=== PATIENT | female | born 1985 | race Caucasian/White ===

== ENCOUNTER 2019-02-13 03:30 | Inpatient (IN) | payer OTHER ==
--- NOTE | 2019-02-13 03:51 | ED.PDOC ---
History of Present Illness - General Chief Complaint: GI Problem Stated Complaint: nausea vomiting hx gallbladder issues Time Seen by Provider: 02/13/19 03:51 Information Source: patient Exam Limitations: no limitations - History of Present Illness Initial Comments: Jael Romero 33 y/o female stated that she had sharp epigastric pain non radiating since yesterday afternoon and took MOM not getting any better ;had also 3 episodes of nausea/vomiting today and just ate lunch at 1230p.Had same symptoms a year ago and went away after taking MOM. Abdominal Pain Onset Location: epigastric Pain Radiation: no radiation Quality: moderate, sharpness Timing/Duration: 7-24 hours Improving Factors: nothing Worsening Factors: nothing Associated Symptoms: nausea/vomiting Review of Systems - Review of Systems Constitutional: States: no symptoms reported EENTM: States: no symptoms reported Respiratory: States: no symptoms reported Cardiology: States: no symptoms reported Gastrointestinal/Abdominal: States: see HPI Genitourinary: States: no symptoms reported Musculoskeletal: States: no symptoms reported Skin: States: no symptoms reported Neurological: States: no symptoms reported Endocrine: States: no symptoms reported All other Systems: Reviewed and Negative, No Change from Baseline Past Medical History (General) - Patient Medical History Hx Seizures: No Hx Stroke: No Hx Dementia: No Hx Asthma: No Hx of COPD: No Hx Cardiac Disorders: No Hx Congestive Heart Failure: No Hx Pacemaker: No Hx Hypertension: No Hx Thyroid Disease: No Hx Diabetes: No Hx Gastroesophageal Reflux: No Hx Renal Disease: No Hx of HIV: No Hx MRSA: No Surgical History: no surgical history - Vaccination History Hx Tetanus, Diphtheria Vaccination: Yes Hx Influenza Vaccination: No Hx Pneumococcal Vaccination: No - Social History Hx Tobacco Use: No Hx Alcohol Use: Yes Hx Substance Use: No Hx Substance Use Treatment: No Hx Depression: No Hx Physical Abuse: No Hx Emotional Abuse: No - Female History Patient is a Female of Child Bearing Age (10 -59 yrs old): Yes Hx Last Menstrual Period: 01/27/19 Patient : No Family Medical History - Family History Mother Family History: Unknown Hx Family;Other: Gallstone -mom Physical Exam - Physical Exam General Appearance: Alert, Comfortable, No apparent distress Eyes, Ears, Nose, Throat Exam: normal ENT inspection Neck: non-tender, full range of motion, supple, normal inspection Respiratory: chest non-tender, lungs clear, normal breath sounds, no respiratory distress Cardiovascular/Chest: normal peripheral pulses, no murmur Peripheral Pulses: No deficit Gastrointestinal/Abdominal: normal bowel sounds, soft, no organomegaly, tenderness - epigastrium,no peritoneal signs Back Exam: no CVA tenderness, no vertebral tenderness Extremity: no pedal edema, no calf tenderness Neurologic: alert, oriented x 3 Skin Exam: normal color, warm/dry Progress - Progress Progress: 02/13/19 04:36 Vital Signs - 8 hr 02/13/19 03:37 Temperature 98.2 F Pulse Rate [ 50 L Left Brachial] Respiratory 20 Rate Blood Pressure 149/95 [Left Arm] O2 Sat by Pulse 95 Oximetry - Results/Orders Results/Orders: 02/13/19 03:52 IV Care:Saline Lock per Protoc QSHIFT 02/13/19 04:26 Hold Metformin x 48Hrs [id number] 02/13/19 06:11 cefOXitin SODIUM [Mefoxin] 2 gm Sodium Chl 0.9% 50Ml Min-Bag+ [NS 50ml MINI- BAG+] 50 ml IVPB ONCE 02/13/19 06:12 Sodium Chloride 0.9% 1000ML [Ns 1000 ml] 1,000 ml IVS .QD Laboratory Results - last 24 hr 02/13/19 02/13/19 02/13/19 04:00 04:00 04:02 WBC 6.6 RBC 4.65 Hgb 14.0 Hct 41.8 MCV 89.8 MCH 30.2 MCHC 33.6 RDW 13.5 Plt Count 154 MPV 9.8 Absolute Neuts (auto) 4.80 Absolute Lymphs (auto) 1.10 Absolute Monos (auto) 0.50 Absolute Eos (auto) 0.00 Absolute Basos (auto) 0.00 Neutrophils % 73.8 Lymphocytes % 16.5 L Monocytes % 8.3 Eosinophils % 0.8 L Basophils % 0.6 PT 11.0 H INR 1.10 PTT (SP) 25.7 Sodium 140 Potassium 3.5 L Chloride 105 Carbon Dioxide 26 Anion Gap 12.5 BUN 16 Creatinine 0.80 BUN/Creatinine Ratio 20.0 Random Glucose 114 H Serum Osmolality 281.4 Calcium 9.4 Magnesium 2.2 Total Bilirubin 0.8 Direct Bilirubin 0.1 Indirect Bilirubin 0.7 AST 20 ALT 25 Alkaline Phosphatase 50 Creatine Kinase 75 CK-MB (CK-2) 1.8 CK-MB (CK-2) % Not Reportable Troponin I < 0.02 Serum Total Protein 7.2 Albumin 4.1 Lipase 28 Serum HCG, Qual Negative Urine Color Yellow Urine Appearance Sl cloudy Urine pH 6.0 Ur Specific [place] 1.025 Urine Protein Trace Urine Glucose (UA) Negative Urine Ketones 15 H Urine Blood Trace-intact H Urine Nitrite Negative Urine Bilirubin Small H Urine Urobilinogen 1.0 Ur Leukocyte Esterase Trace H Urine RBC 5-10 H Urine WBC 5-10 H Ur Epithelial Cells 10-20 Urine Bacteria 1+ Discuss test result with patient and hospital admission as well as surgery consult with Dr. Mccoy;patient agreed with plan - EKG/XRAY/CT CT Ordered: Yes - abd/p-gallbladder sludge;tihckened gallbladder wall-poss.acute cholecystiti Departure - Departure Clinical Impression: Acute cholecystitis without calculus Abdominal pain Qualifiers: Abdominal location: epigastric Qualified Code(s): R10.13 - Epigastric pain Time of Disposition: 06:20 Disposition: Admit Patient Condition: Fair Departure Forms: Patient Portal Self Enrollment Home Medications: Ambulatory Orders NK 02/13/19 Decision To Admit - Decistion To Admit Decision to Admit Reason: Admit from ER Decision to Admit Date: 02/13/19 - D/W -surgeon;Montserrat Beal-ANP/HOSP Decision to Admit Time: 06:16
[2019-02-13] MEDS ORDERED: LACTATED RINGERS 1,000 ML IVS ONE (03:52)
[2019-02-13] MEDS ORDERED: MORPHINE SULFATE INJ 10 MG/ML VIAL IV ONE (04:24)
[2019-02-13] MEDS ORDERED: ALUM & MAG HYDROX-SIMETHICONE 30 ML, LIDOCAINE VISCOUS 2% 15 ML PO ONE ×2 (04:24)
[2019-02-13] MEDS ORDERED: PANTOPRAZOLE INJECTION 80 MG in SODIUM CHLORIDE 0.9% 100ML 80 ML IVPB ONE (04:24)
[2019-02-13] MEDS ORDERED: ALUM & MAG HYDROX-SIMETHICONE 30 ML UD ONE (04:27)
[2019-02-13] MEDS ORDERED: LIDOCAINE HCL 2% (MOUTH-THROAT) 15 ML UD ONE (04:27)
[2019-02-13] MEDS ORDERED: PANTOPRAZOLE SODIUM IV 40 MG VIAL ONE (04:28)
[2019-02-13] MEDS ORDERED: SODIUM CHLORIDE 0.9% 100ML 100 ML IVPB ONE (04:28)
--- NOTE | 2019-02-13 05:31 | CT ---
CT ABDOMEN AND PELVIS WITH CONTRAST. 02/13/2019 CLINICAL HISTORY: Abdominal pain. COMPARISON: None. TECHNIQUE: Axial [address] imaging of the abdomen and pelvis performed utilizing intravenous contrast. Reformatted coronal and sagittal images reviewed. A dose reduction technique was utilized with automated exposure control according to patient size. FINDINGS: LOWER THORAX: Clear lung bases. Normal cardiac size. ABDOMEN: LIVER/GALLBLADDER: Normal liver. Possible gallbladder sludge. Gallbladder wall appears slightly thickened. No pericholecystic edema. No calcified stones. No biliary dilatation. The gallbladder is moderately distended. SPLEEN/PANCREAS: Normal spleen and pancreas. KIDNEYS/ADRENAL GLANDS: Normal adrenal glands kidneys. RETROPERITONEAL VESSELS/NODES: Normal aorta and inferior vena cava caliber. No adenopathy. Mesenteric vessels appear normal. BOWEL: Normal stomach. The small bowel caliber is within normal limits. Normal appendix along the right pelvic sidewall. Fluid noted within the ascending colon. Normal remaining colon. MESENTERY/PERITONEUM: No ascites or free air, or adenopathy. PELVIS: BLADDER: Decompressed but otherwise normal. GENITAL ORGANS: Intrauterine device is appropriately positioned within the uterus. Normal ovaries. PERITONEUM: No pelvic free fluid or adenopathy. BONES AND SOFT TISSUES: Normal lumbosacral alignment. No subluxation. Intact bony pelvis. Normal hips. IMPRESSION: 1. Possible gallbladder sludge with slight wall thickening raises the possibility of acute cholecystitis. Correlate with right upper quadrant exam. 2. Minimal fluid within the ascending colon may indicate mild enteritis. Electronically signed by: Graciela Montejo DO 02/13/2019 5:28 AM CDT
[2019-02-13] MEDS ORDERED: cefOXitin SODIUM 2 GM in SODIUM CHL 0.9% 50ML MIN-BAG+ 50 ML IVPB ONE (06:11)
[2019-02-13] MEDS ORDERED: SODIUM CHLORIDE 0.9% 1000ML 1,000 ML IVS PRN (06:12)
[2019-02-13] MEDS ORDERED: SODIUM CHL 0.9% 50ML MIN-BAG+ 50 ML IVPB ONE ×4 (06:14→19:32)
[2019-02-13] MEDS ORDERED: cefOXitin SODIUM 2 GM INJ IVPB ONE ×4 (06:14→19:32)
--- NOTE | 2019-02-13 07:38 | HP ---
SUPERVISING PHYSICIAN: Sai Matthews M.D. CHIEF COMPLAINT: Epigastric abdominal pain. HISTORY OF PRESENT ILLNESS: This is a 33 year-old female patient who lives in [place]. She was visiting family here and they were camping. She noted that her aunt is Dr. Nathalie Carrillo's office nurse. They were camping and for about the past 3 months she has had what she thought were gallbladder attacks off and on, but she usually takes some Milk of Magnesia and her symptoms go away. She had some nausea and vomiting as well as some epigastric abdominal pain. There was no diarrhea. No fever. Her symptoms began about 3:00 PM yesterday afternoon and by the late evening she came to the Emergency Room because the Milk of Magnesia had not stopped her abdominal pain. She started on a healthy diet 3 months ago eating lean meats and vegetables. She also started exercising about 1 month ago. She does yoga twice a week and she does kick boxing twice a week. She denies any history of cardiac problems as her heart rate has dropped as low as 40. In the E. R., her vital signs were temperature 98.2, blood pressure 149/95, heart rate 47, respiratory rate 20, O2 sat 99% on room air. CBC was unremarkable. Sodium 140, potassium 3.5, chloride 105, carbon dioxide 26, BUN 16, creatinine 0.8, magnesium 2.2. Total bilirubin 0.8, direct bilirubin 0.1, indirect bilirubin 0.7, amylase 53, lipase 28, serum HCG was negative. Her urinalysis showed 15 of urine ketones, trace of intact urine blood, small amount of urine bilirubin, trace of urine leukocyte esterase, 5 to 10 urine RBCs and 5 to 10 urine WBCs. Abdominal/pelvis CT was completed and it showed: 1. Possible gallbladder sludge with slight wall thickening raises the possibility of acute cholecystitis. Correlate with right upper quadrant exam. 2. Minimal fluid within the ascending colon may indicate mild enteritis. Dr. Travis, the E. R. doctor, contacted Dr. Mccoy, general surgeon, and he agreed to see her in consultation after admission. He recommended her to be put on Cefoxitin IV antibiotics. I was called for hospital admission. PAST MEDICAL HISTORY: 1. Migraines. PAST SURGICAL HISTORY: 1. [place] teeth extraction about 1 year ago. OUTPATIENT MEDICATIONS: None. ALLERGIES: NO KNOWN DRUG ALLERGIES. FAMILY HISTORY: Noncontributory. SOCIAL HISTORY: She lives in [place]. She flips houses as a profession. She denies tobacco or illicit drug use. Up until about 3 months ago, she drank alcohol on a social basis but has not drank any alcoholic beverages in the last 3 months. REVIEW OF SYSTEMS: GENERAL: Negative for fever or fatigue. HEENT: Negative for sinus symptoms, ear pain, sore throat or vision changes. RESPIRATORY: Negative for coughing, wheezing or shortness of breath. CARDIAC: Negative for chest pains, palpitations or tachycardia. GASTROINTESTINAL: As per History of Present Illness. GENITOURINARY: Negative for hematuria, dysuria or polyuria. MUSCULOSKELETAL: Negative for arthralgias or myalgias. SKIN: Negative for lesions or rashes. HEMATOLOGIC: Negative for excessive bruising or excessive bleeding. NEUROLOGIC: Negative for recent headaches, seizures or dizziness. PHYSICAL EXAMINATION: VITAL SIGNS: Temperature 96.9, blood pressure 106/77, heart rate 44 to 51, respiratory rate 18, O2 sat 95% on room air. GENERAL: HEENT: NECK: CHEST: CARDIOVASCULAR: ABDOMEN: EXTREMITIES: NEUROLOGIC: LABORATORY: Labs and films are per the History of Present Illness. ASSESSMENT: 1. Acute cholecystitis. 2. Urinary tract infection. 3. Nausea, vomiting and diarrhea most likely secondary to #1 or she may have a mild enteritis. 4. Bradycardia with no acute symptoms such as dizziness from low heart rate. 5. History of migraine headaches. PLAN: We will admit the patient to the hospital. I have made her NPO and started some D5 half NS with 20 of K at 125. I have consulted Dr. Mccoy. I have ordered a gallbladder ultrasound for in the morning. She will remain NPO overnight. Dr. Mccoy will see her later this morning. I also continued her Cefoxitin as recommended by Dr. Mccoy. I have ordered some repeat lab for in the morning in addition to sonogram. Will continue to monitor closely and follow as needed. [facility][id number] [facility]
[2019-02-13] MEDS ORDERED: LEVALBUTEROL NEBS 1.25 MG/3 ML VIAL NEB PRN (08:39)
[2019-02-13] MEDS ORDERED: ACETAMINOPHEN SUPPOSITORY 650 MG PR PRN (08:39)
[2019-02-13] MEDS ORDERED: SODIUM CHLORIDE 0.9% (FLUSH) 10 ML SYG IV PRN (08:39)
[2019-02-13] MEDS ORDERED: IV SET AND CAP CHANGE INJ INJ SCH (09:00)
[2019-02-13] MEDS: MORPHINE SULFATE INJ 10 MG/ML VIAL IV PRN ×4 (09:02→16:52)
[2019-02-13] MEDS: KCL 20MEQ/D5 1/2NS 1,000 ML IVS PRN ×2 (09:02→18:57)
[2019-02-13] MEDS: ONDANSETRON INJ 4 MG/2 ML VIAL IV PRN ×3 (09:03→22:11)
[2019-02-13] MEDS: cefOXitin SODIUM 2 GM in SODIUM CHL 0.9% 50ML MIN-BAG+ 50 ML IVPB SCH ×2 (11:45→19:05)
--- NOTE | 2019-02-13 18:21 | CONS ---
DATE OF CONSULTATION: 02/13/19 REFERRING PHYSICIAN: Hospitalist Service, Sai Matthews M.D. and Montserrat Beal, [facility] HISTORY OF PRESENT ILLNESS: The patient is a 33 year-old female who lives in [place] and was here visiting her mother for her mother's birthday. They were camping and developed nausea, vomiting and epigastric abdominal pain. The patient states that she has had symptoms like this before, especially over the last 3 months since she has been dieting and exercising. The patient took a dose of Milk of Magnesia but it did not improve the abdominal pain. She has had in the past some success with Milk of Magnesia. She is afebrile and somewhat bradycardic. Her white count was within normal limits as was her liver function testing and pancreatic enzymes. CT scan was obtained which revealed possible sludge in the gallbladder and possible mild thickening of the gallbladder wall, and dilation of the gallbladder, but no pericholecystic fluid and normal ductal system. There was also question of fluid within the colon consistent with enteritis. PAST MEDICAL HISTORY: 1. Migraines. 2. Child times 1 by vaginal delivery. PAST SURGICAL HISTORY: 1. Vaginal delivery. 2. [place] tooth extraction. CURRENT MEDICATIONS: Takes no medications [id number]. ALLERGIES: NO KNOWN DRUG ALLERGIES. FAMILY HISTORY: There is no history of anesthesia complications but there have been multiple patients in the family with gallbladder disease. SOCIAL HISTORY: She lives in [place]. Does not use tobacco or drugs. Drinks but has not had any alcohol in the last several months. REVIEW OF SYSTEMS: There is no history of hepatitis or jaundice. She does state that she cannot eat some fatty foods. Denies change in her bowel habits. Weight loss has been consistent with her exercise and diet. PHYSICAL EXAMINATION: VITAL SIGNS: Afebrile and normotensive. GENERAL: The patient is awake, alert, cooperative and in mild distress. HEENT: Sclera are nonicteric. Mucous membranes are moist. CHEST: She has equal breath sounds bilaterally. HEART: Regular rhythm. ABDOMEN: Soft. Mild tenderness in the epigastrium without guarding or mass. Bowel sounds are active. PELVIC AND RECTAL: Examinations are deferred. EXTREMITIES: Without clubbing, cyanosis or edema. LABORATORY: Lab and CT scan are previously noted. IMPRESSION: 1. Abdominal pain with nausea and vomiting, fatty food intolerance, questionable CT scan of the gallbladder. PLAN: Recommend at this time to keep the patient NPO. Continue hydration and analgesia. Will obtain an ultrasound of the gallbladder in the morning and review the CT scan with the radiologist in the morning. Consider cholecystectomy. The risks, benefits, and alternatives of the procedure were not discussed with the patient. [id number] [facility]
[2019-02-14] MEDS: cefOXitin SODIUM 2 GM in SODIUM CHL 0.9% 50ML MIN-BAG+ 50 ML IVPB SCH ×5 (00:03→23:31)
[2019-02-14] MEDS: KCL 20MEQ/D5 1/2NS 1,000 ML IVS PRN ×2 (02:50→10:19)
[2019-02-14] MEDS ORDERED: SODIUM CHL 0.9% 50ML MIN-BAG+ 50 ML IVPB ONE ×5 (06:02→23:36)
[2019-02-14] MEDS ORDERED: cefOXitin SODIUM 2 GM INJ IVPB ONE ×6 (06:03→23:36)
[2019-02-14] MEDS: PANTOPRAZOLE SODIUM IV 40 MG VIAL IV SCH (06:06)
[2019-02-14] MEDS: HYDROmorphone HCL INJ 2 MG/ML VIAL IV PRN ×2 (08:27→18:40)
[2019-02-14] MEDS ORDERED: PROPOFOL 200 MG/20 ML VIAL IV ONE (10:00)
[2019-02-14] MEDS ORDERED: LIDOCAINE 1% 10 ML VIAL INJ ONE (10:00)
[2019-02-14] MEDS ORDERED: METOCLOPRAMIDE HCL INJ 10 MG/2 ML VIAL IV ONE (10:00)
[2019-02-14] MEDS ORDERED: diphenhydrAMINE HCL 50 MG/ML VIAL IV ONE (10:00)
[2019-02-14] MEDS ORDERED: DEXAMETHASONE INJ 10 MG/ML VIAL IV ONE (10:00)
[2019-02-14] MEDS ORDERED: VECURONIUM BROMIDE 10 MG VIAL IV ONE (10:00)
[2019-02-14] MEDS ORDERED: ONDANSETRON INJ 4 MG/2 ML VIAL IV ONE (10:00)
[2019-02-14] MEDS ORDERED: KETOROLAC TROMETHAMINE INJ 30 MG/ML VIAL IV ONE (10:00)
[2019-02-14] MEDS ORDERED: WATER FOR INJ 10 ML VIAL INJ ONE (10:00)
--- NOTE | 2019-02-14 10:19 | US ---
EXAM DESCRIPTION: Gall Bladder: ULTRASOUND. CLINICAL HISTORY: cholecystitis COMPARISON: CT abdomen and pelvis 02/13/2019. TECHNIQUE: Transabdominal scanning: García-scale and Doppler modes. FINDINGS: Gallbladder: Normal size with multiple echogenic stones with acoustic shadowing. Stones mobile with patient change in position. No fluid around the gallbladder. No wall thickening. 1.9 mm. Tender with transducer pressure. Common bile duct: caliber 3.0 mm within normal limits. Liver: normal echogenicity; contour liver capsule smooth where seen. No fluid around the liver. Intrahepatic biliary ducts normal caliber. Doppler hepatopedal flow portal vein.. Long axis right lobe 14 cm. Pancreas: normal size and echogenicity. Duct not seen. Aorta: Normal caliber from the proximal segment to the distal bifurcation. Right kidney: 10.7 cm long axis. Normal cortical thickness and echogenicity. No hydronephrosis or perinephric fluid or echogenic stone. IMPRESSION: Acute cholecystitis with multiple stones, tender with transducer pressure. No wall thickening or fluid. Normal caliber common bile duct and intrahepatic ducts. No ascites. Other abdominal organs unremarkable. Electronically signed by: Dariel Miller MD 02/14/2019 10:16 AM CDT
[2019-02-14] MEDS ORDERED: HEPARIN SODIUM (PORCINE) 10,000 UNITS/ML VIAL ONE (13:33)
[2019-02-14] MEDS ORDERED: BUPIVACAINE 0.25% W/EPI 50 ML VIAL INJ ONE ×3 (13:33→13:50)
[2019-02-14] MEDS ORDERED: SUCCINYLCHOLINE CHLORIDE 200 MG/10 ML VIAL ONE (13:35)
[2019-02-14] MEDS ORDERED: fentaNYL CITRATE INJ 50 MCG/ML AMP ONE (13:35)
[2019-02-14] MEDS ORDERED: HEPARIN SODIUM (PORCINE) 10,000 UNITS/ML VIAL IRRIG ONE (13:50)
[2019-02-14] MEDS ORDERED: LACTATED RINGERS 1,000 ML ONE (14:30)
[2019-02-14] MEDS ORDERED: SUGAMMADEX SODIUM 200 MG/2 ML VIAL IV ONE (15:18)
--- NOTE | 2019-02-14 16:31 | OP ---
DATE OF PROCEDURE: 02/14/19 PREOPERATIVE DIAGNOSIS: 1. Right upper quadrant pain. 2. Cholelithiasis. 3. Acute cholecystitis. POSTOPERATIVE DIAGNOSIS: 1. Right upper quadrant pain. 2. Cholelithiasis. 3. Acute cholecystitis. PROCEDURE: 1. Laparoscopic cholecystectomy with intraoperative cholangiography using fluoroscopy. SURGEON: Gaston Mccoy MD. TERRITORY DEVELOPMENT MANAGER: None. ANESTHESIA: Local infiltration of 0.25% Marcaine with epinephrine and general endotracheal anesthesia. INDICATION: The patient is a 33-year-old female who has been dieting and exercising over the past 3 months. She has had a history of some fatty food intolerance. She developed severe right upper quadrant pain with nausea and vomiting Thursday night and presented to the Emergency Room. She underwent a CT scan which was suspicious for cholecystitis and possibly sludge. She had a normal white count and liver function tests, but she was admitted for hydration and begun on antibiotics early Thursday morning. This morning, she underwent an ultrasound and she still had some mild discomfort which showed multiple stones, thickened wall and an ultrasound Bray's sign of tenderness with palpation of the gallbladder. After the risks, benefits and alternatives to laparoscopic cholecystectomy, she was brought to the Surgical Suite today for the same. FINDINGS: The gallbladder wall was thickened. There were some areas that were gangrenous. There were multiple stones. Intraoperative cholangiography revealed free flow into the duodenum with no filling defects or strictures noted. DESCRIPTION OF PROCEDURE: After adequate general endotracheal anesthesia was obtained, the patient was prepped and draped in the usual sterile manner. Surgical time-out was taken. The infraumbilical area was infiltrated with local anesthesia. A curvilinear incision was fashioned and dissection was carried down through the skin and subcutaneous tissue to the midline fascia. Traction sutures were placed on either side of the midline. A small incision was made in the midline fascia and the peritoneum was opened bluntly. Perlita trocar was introduced under direct vision into the abdominal cavity and fixed in place with the 20 mL balloon. CO2 was then insufflated until a pressure of 12 mmHg was reached and the abdomen was tympanitic in all four quadrants. When this was done, the laparoscope was introduced. The abdomen was inspected with the previously noted findings. The patient was then placed in reverse Trendelenburg position and turned to the left side. The upper abdominal ports were placed under direct vision in the usual manner. The gallbladder was grasped. It was quite tense, so at this point a Storz needle was introduced and 60 mL of thick bile were removed from the gallbladder. The gallbladder was then grasped and retracted anteriorly and laterally . The neck of the gallbladder was retracted laterally. The triangle of Calot was then explored with the cystic duct and cystic artery identified and isolated. The cystic duct was hemoclipped once proximally. The cystic artery was hemoclipped twice proximally and once distally. A small incision was made in the cystic duct. The cholangiogram catheter was introduced through a separate stab wound in the right upper quadrant, introduced into the cystic duct and clipped in place. Cholangiograms were then taken using fluoroscopy which revealed free flow into the duodenum with no filling defects or strictures noted. When this was done, the cystic duct catheter was removed. The cystic duct was hemoclipped three times distally and divided between the hemoclips. The cystic artery was divided. A second branch was identified and clipped after there was a small amount of oozing. The gallbladder was then dissected free from the gallbladder bed of the liver with significant difficulty due to the edema in the wall and the gangrenous nature of the tissue. A small rent was noted and the bile was aspirated. The gallbladder was placed in an EndoCatch bag and removed from the infraumbilical port site in the usual manner under direct vision. When this was done, the subhepatic space and subphrenic space were irrigated copiously with saline. The effluent was noted to be clear. The pablo hepatis was inspected and no bleeding or bile leak was identified. As noted, there was a second bleeder noted in the inferior aspect of the gallbladder bed and this was clipped. At this point, hemostasis was noted to be adequate so, again, the subphrenic space and subhepatic space were irrigated copiously with saline. The effluent was essentially clear. The upper abdominal ports were removed under direct vision. There was some oozing from the lateral port site which was controlled with electrocautery. At this point, the CO2, the laparoscope and the infraumbilical port were removed. The infraumbilical port site fascia was approximated with a single [id number] suture of 0 Vicryl. Subcutaneous tissue was irrigated with saline. Skin edges were approximated with 4-0 Vicryl subcuticular sutures, benzoin and Steri- Strips. Sterile dressings were applied. The patient was awakened and taken to the Recovery Room in good and stable condition. Estimated blood loss was approximately 50 mL. All sponge, needle and instrument counts were correct. [facility][id number] [facility]
--- NOTE | 2019-02-14 17:13 | RAD ---
EXAM DESCRIPTION: Fluoroscopy Up to 1Hr: RF. CLINICAL HISTORY: 33 years Female intraoperative cholangiogram COMPARISON: None. IMPRESSION: Single frontal fluoroscopic image taken by the referring physician intraoperatively during intraoperative cholangiogram. No complicating process is demonstrated. Contrast seen in the cystic duct, proximal common bile duct and the distal intrahepatic ducts and hepatic duct. Please refer to surgical report for specific details. Total fluoroscopic time was 10 seconds. Cumulative dose not recorded. Permanent images of this procedure are stored in the patient's medical record. Electronically signed by: Dariel Miller MD 02/14/2019 5:11 PM CDT
[2019-02-14] MEDS ORDERED: SODIUM CHLORIDE 0.9% 50ML 50 ML ONE (19:13)
[2019-02-14] MEDS ORDERED: SODIUM CHLORIDE 0.9% (FLUSH) 10 ML SYG IV ONE (19:40)
[2019-02-14] MEDS: HYDROcodone 5MG/APAP 325MG 1 EA TAB PO PRN (21:34)
--- NOTE | 2019-02-14 21:46 | PN ---
DATE: 02/14/19 SUPERVISING PHYSICIAN: Alfonzo Carmona M.D. SUBJECTIVE: The patient is seen postoperatively after having a laparoscopic cholecystectomy. She had no intraoperative complications and showing to be good with pain control. She has had no nausea or vomiting, currently NPO. OBJECTIVE: VITAL SIGNS: Temperature 99.7, pulse 67, blood pressure 103/68, respirations 16, satting 96% on 2 liters nasal cannula. I's and O's show a negative balance of 400 with 1400 in, 1800 out Weight is 89.8 kg. GENERAL: The patient is resting comfortably, just from PACU. She is alert. Appears to be without any current pain or distress. CHEST: Lung sounds are clear to auscultation. HEART: Regular rate and rhythm. ABDOMEN: Soft. Tenderness over the right upper quadrant. No point tenderness. No rebound tenderness. Bowel sounds were active. NEUROLOGIC: She is alert and oriented times three. LABORATORY: White count today was 7,200, hemoglobin and hematocrit stable at 12.6 and 38.3. Differential did show a slight left shift. Chemistries show normal electrolytes. BUN less than 5, creatinine 0.82, calcium 8.8. Liver functions all within normal limits. RADIOLOGY: Ultrasound of the gallbladder this morning preoperatively and per radiology interpretation showed acute cholecystitis with multiple stones with transducer pressure. No wall thickening or fluids. Normal caliber common bile duct and intrahepatic ducts. No ascites. ASSESSMENT: 1. Acute cholecystitis secondary to cholelithiasis status post laparoscopic cholecystectomy. Postoperative day #0. 2. Bradycardia, asymptomatic. 3. History of migraine headaches. PLAN: The patient is immediate postoperative state. Will continue with monitoring. If she does overnight show to be stable, will discharge in the morning. She has been advanced to a diet. Dr. Mccoy has written for pain management on discharge. Will saline lock her and encourage diet and fluids. Will continue with pain management as per Dr. Mccoy's orders. Anticipate discharging in the morning. Until then will continue to monitor and treat as needed. #[id number] [facility]
[2019-02-15] MEDS: HYDROcodone 5MG/APAP 325MG 1 EA TAB PO PRN ×2 (02:09→06:34)
[2019-02-15] MEDS: PANTOPRAZOLE SODIUM IV 40 MG VIAL IV SCH (05:59)
[2019-02-15] MEDS: cefOXitin SODIUM 2 GM in SODIUM CHL 0.9% 50ML MIN-BAG+ 50 ML IVPB SCH (05:59)
[2019-02-15 06:40] VITALS: BP 102/63; TEMP 97.7; O2SAT 93
--- NOTE | 2019-02-16 08:57 | DS ---
SUPERVISING PHYSICIAN: Red Carmona MD ADMISSION DIAGNOSIS: 1. Acute cholecystitis. 2. Urinary tract infection. 3. Nausea, vomiting and diarrhea most likely secondary to #1 or she may have a mild enteritis. 4. Bradycardia with no acute symptoms such as dizziness from low heart rate. 5. History of migraine headaches. DISCHARGE DIAGNOSIS: 1. Acute cholecystitis secondary to cholelithiasis status post laparoscopic cholecystectomy, discharged on postoperative day #1. 2. Bradycardia, asymptomatic. 3. History of migraine headaches. REASON FOR HOSPITALIZATION: This is a 33 year-old female patient who lives in [place]. She was visiting family here and they were camping. She noted that her aunt is Dr. Nathalie Carrillo's office nurse. They were camping and for about the past 3 months she has had what she thought were gallbladder attacks off and on, but she usually takes some Milk of Magnesia and her symptoms go away. She had some nausea and vomiting as well as some epigastric abdominal pain. There was no diarrhea. No fever. Her symptoms began about 3:00 PM yesterday afternoon and by the late evening she came to the Emergency Room because the Milk of Magnesia had not stopped her abdominal pain. She started on a healthy diet 3 months ago eating lean meats and vegetables. She also started exercising about 1 month ago. She does yoga twice a week and she does kick boxing twice a week. She denies any history of cardiac problems as her heart rate has dropped as low as 40. In the E. R., her vital signs were temperature 98.2, blood pressure 149/95, heart rate 47, respiratory rate 20, O2 sat 99% on room air. CBC was unremarkable. Sodium 140, potassium 3.5, chloride 105, carbon dioxide 26, BUN 16, creatinine 0.8, magnesium 2.2. Total bilirubin 0.8, direct bilirubin 0.1, indirect bilirubin 0.7, amylase 53, lipase 28, serum HCG was negative. Her urinalysis showed 15 of urine ketones, trace of intact urine blood, small amount of urine bilirubin, trace of urine leukocyte esterase, 5 to 10 urine RBCs and 5 to 10 urine WBCs. Abdominal/pelvis CT was completed and it showed 1) Possible gallbladder sludge with slight wall thickening raises the possibility of acute cholecystitis. Correlate with right upper quadrant exam. 2) Minimal fluid within the ascending colon may indicate mild enteritis. Dr. Travis, the E. R. doctor, contacted Dr. Mccoy, general surgeon, and he agreed to see her in consultation after admission. He recommended her to be put on Cefoxitin IV antibiotics. The patient was admitted in stable condition. CONSULTATIONS: Gaston Mccoy MD. Please see his consultation note for details. PROCEDURE: Laparoscopic cholecystectomy for acute cholecystitis. Please see Dr. Mccoy's operative note for details. LABORATORY: White count on admission was 6,600. Prior to discharge, it was 7,200. At discharge, hemoglobin 12.6 and hematocrit 30.3, platelet count 131,000. Differential showed slight left shift. Coagulation studies showed PT 11, PTT 25.7. Chemistries initially on admission showed slightly low potassium of 3.5. At discharge, potassium had normalized at 4.6. BUN less than 5, creatinine 0.82. Magnesium 2.2, calcium 9.4. Liver functions all within normal limits. Amylase and lipase were both normal. Serum HCG was negative. Urinalysis showed 15 ketones, trace amount of blood, small amount of bilirubin, trace leukocyte esterase. Microscopic revealed 10 to 20 epithelials, 5 to 10 WBCs, 5 to 10 RBCs, 1+ bacteria. MICROBIOLOGY: No specimens were submitted for culture. RADIOLOGY: She had an abdominopelvic CT initially in the Emergency Room and per radiologic interpretation showed possible gallbladder sludge with slight wall thickening raising possibility for acute cholecystitis. Minimal fluid within the colon that could indicate enteritis. This was followed up with a gallbladder ultrasound after admission on 02/14/19 and per radiologic interpretation showed acute cholecystitis with multiple stones, tender with transducer pressure. No wall thickening or fluid. Normal caliber of bile ducts and intrahepatic ducts. No ascites. Please see that report for full details. HOSPITAL COURSE: Ms. Romero was admitted on 02/13/19 from the Emergency Room for acute right upper quadrant pain that was felt to be related to acute cholecystitis which was confirmed the day after admission via ultrasound. She was admitted on Thursday and there was no ultrasound available, so she was kept overnight at that point and had a consultation with Dr. Mccoy in the morning after ultrasound was completed. At that point, she was taken to surgery and had a laparoscopic cholecystectomy. She had no complications intraoperatively and was found to be stable postoperatively. She was still continuing to need management with Dilaudid and was having no nausea, but slow to titrate her diet after surgery. Therefore, she was kept overnight given the gallbladder was a little more inflamed than presented on imaging studies per Dr. Mccoy. Please see his report for full details. She did well overnight and on the morning of discharge was felt clinically stable enough to continue with outpatient management. PLAN: Ms. Romero was discharged on 02/15/19 with instructions to followup with Dr. Mccoy the following Thursday after discharge. She could shower, but no tub baths. No lifting or pulling as per Dr. Mccoy's postoperative instructions. She was to take her medications as prescribed for pain management and increase her diet to include a low-fat diet as tolerated. She was given instructions to return to the hospital or call Dr. Mccoy should she have any concerning symptoms. Medications prescribed at discharge included pain management with [place] 5/[address] Mccoy. CONDITION AT DISCHARGE: Stable and improving. DISPOSITION: The patient was discharged to care of family members. #[id number] MTDD
== END 2019-02-15 09:44 | disposition home or self-care (01) | DRG 418 ==
LOC: ER 03:30 → OBSVTOIN 07:37 → INTOOBSV 07:37 → MS 07:37
PROVIDERS: ADMIT Nurse Practitioner Acute Care; ATTEND Nurse Practitioner Family
PROC: BW211ZZ Computerized Tomography (CT Scan) of Abdomen and Pelvis using Low Osmolar Contrast (ICD-10-PCS; 2019-02-13)
PROC: BF131ZZ Fluoroscopy of Gallbladder and Bile Ducts using Low Osmolar Contrast (ICD-10-PCS; 2019-02-14)
PROC: 0FT44ZZ Resection of Gallbladder, Percutaneous Endoscopic Approach (ICD-10-PCS; principal; 2019-02-14 14:00)
DX: K80.00 Calculus of gallbladder with acute cholecystitis without obstruction (principal); N39.0 Urinary tract infection, site not specified; R00.1 Bradycardia, unspecified; E66.9 Obesity, unspecified; Z68.31 Body mass index [BMI] 31.0-31.9, adult